=== PATIENT | male | born 2005 | race Caucasian/White ===

== ENCOUNTER 2024-03-25 07:52 | Emergency (ER) | payer BC, SELFPAY ==
[2024-03-25 07:54] VITALS: BP 137/67; PULSE 76; RESP 12; TEMP 36.7; O2SAT 100
--- NOTE | 2024-03-25 08:00 | DI.RAD_ITS ---
Exam(s) XR CHEST 2V PA LATERAL EXAM: XR CHEST 2V PA LATERAL CLINICAL HISTORY: SOB, Pain with breathing. TECHNIQUE: 2D digital imaging was performed. COMPARISON: No exams were available for comparison FINDINGS: 2 views: Heart size is normal. The mediastinum is not widened. Lungs are clear. No infiltrates nor pleural effusions. No pneumothorax IMPRESSION: No acute pulmonary findings. DATA REPOSITORY: RADIATION DOSE DELIVERED:
[2024-03-25 08:16] VITALS: BP 117/53; PULSE 45
--- NOTE | 2024-03-25 08:19 | ED.GENADUL_ITS ---
Discharge Plan Disposition Patient Disposition: Home Condition: Stable Discharge Details Clinical Impression: Costochondritis, Anterior chest wall pain Primary Care Provider: Moe Jean-Baptiste III ED Provider: Tricia Mejias Discharge Instructions Instructions: Costochondritis (ED), Chest Wall Pain (ED) Additional Instructions: No evidence of lung abnormality on Chest x-ray, I suspect musculoskeletal strain or something called costochondritis which is an inflammation of the ligaments in between your ribs. Please take Tylenol or Ibuprofen with food every 4-6 hours as needed for pain and swelling. Alternate ice and heat. Follow up with primary care provider in 3-5 days. Return to ED sooner if any worsening pain, shortness of breath, nausea vomiting, fever or concerns. Take it easy over the next few days, no heavy lifting to allow it to heal. Stand Alone Forms: Work Release Referrals: Moe Jean-Baptiste III [Primary Care Provider] - 3 days Discharge Data Discharge Date/Time-TO BE ENTERED AT DEPARTURE: 03/25/24 09:43 HPI General Mode of arrival: ambulatory . Date/Time Provider Initiated Documentation: 03/25/24 07:59 . Limitations to Documentation: no limitations . Information obtained by: patient, RN notes reviewed and old records reviewed . HPI Narrative: 18 year old male presents with left lower chest pain which has been ongoing on and off x 1 year, constant and worse since yesterday. Worse with deep breathing and movement. Denies smoking or alcohol, Denies any heavy lifting or trauma. Related Data Allergies Allergy/AdvReac Type Severity Reaction Status Date / Time dust mites Allergy Mild other Uncoded 03/25/24 08:13 leaf pollen Allergy Mild Other (See Uncoded 03/25/24 08:13 Comment) General Stated Complaint: Abd Prob LITO: 3 Review of Systems All systems reviewed & are unremarkable except as noted in HPI and below Cardiovascular Cardiovascular: Reports chest pain, Denies leg edema and Denies dyspnea Respiratory Respiratory: Denies dyspnea Musculoskeletal Musculoskeletal: Reports as per HPI Exam Narrative Exam Narrative: Constitutional: Alert and oriented x3. Appears stated age. Normal body habitus. Head: Normocephalic, no trauma. Eyes: Pupils PERRL, Red reflex noted, EOM's intact. Eyelids symmetrical without lesions, discharge, or swelling. Chest: RRR, Normal S1, S2, distal pulses intact. Resp: Lungs clear to auscultation bilaterally, no wheezes, rales, or rhonchi. Abdomen: Soft, non-distended, Normoactive bowel sounds all 4 quads. Musculoskeletal: Normal gait, moves all 4 extremities without difficulty. Skin: No suspicious rashes or lesions. Capillary refill less than 2 sec. Neurologic: Cranial nerves II-XII intact. Alert and oriented x 3. Motor: No deficits noted. Hematologic/Lymphatic: No ecchymosis, no lymphadenopathy. Course Vital Signs Vital signs: Vital Signs Temperature 36.7 C 03/25/24 07:54 Pulse 76 03/25/24 07:54 Respiratory Rate 12 03/25/24 07:54 Blood Pressure 137/67 03/25/24 07:54 Pulse Oximetry 100 03/25/24 07:54 Temperature 36.7 C 03/25/24 07:54 Temperature Source Oral 03/25/24 07:54 Pulse 76 03/25/24 07:54 Respiratory Rate 12 03/25/24 07:54 Respiratory Effort Normal, Non-Labored 03/25/24 07:59 Blood Pressure 137/67 03/25/24 07:54 Blood Pressure Position Sitting 03/25/24 07:54 Pulse Oximetry 100 03/25/24 07:54 Oxygen Delivery Method Room Air 03/25/24 07:54 Oxygen Flow Rate 0 03/25/24 07:54 Pain Level 3 03/25/24 08:06 Medical Decision Making 18 year old male presents with left lower chest pain which has been ongoing on and off x 1 year, constant and worse since yesterday. Worse with deep breathing and movement. Denies smoking or alcohol, Denies any heavy lifting or trauma. Chest x-ray 2 view ordered, CBC CMP lipase urinalysis. Strongly suspect musculoskeletal due to pain with movement and deep breathing. Will rule out other etiologies. Differential diagnosis includes not limited to ulcer, pancreatitis, musculoskeletal strain, costochondritis. Chest x-ray within normal limits noted below. Labs are also largely within normal limits of note bilirubin slightly high at 2.7, no leukocytosis. Patient received 50 mg Toradol. Remained hemodynamically stable throughout remainder of stay. Discussed home care strict return instructions to return if any worsening he verbalized understanding. Just instructed to alternate ice and heat, take Tylenol ibuprofen and rest for few days. He verbalized understanding. This text was generated using [employer] system, please disregard any oddities of phrase or misspellings. Imaging Data Radiologic Study: Imaging: X-Ray Radiologist's impression: EXAM: XR CHEST 2V PA LATERAL CLINICAL HISTORY: SOB, Pain with breathing. TECHNIQUE: 2D digital imaging was performed. COMPARISON: No exams were available for comparison FINDINGS: 2 views: Heart size is normal. The mediastinum is not widened. Lungs are clear. No infiltrates nor pleural effusions. No pneumothorax IMPRESSION: No acute pulmonary findings. Lab Data Lab results reviewed: Yes I reviewed the patient's lab results. Labs: Laboratory Tests Range/Units 03/25/24 03/25/24 08:05 08:20 WBC (4.4-10.8) 10^3/uL 3.89 L RBC (4.36-5.78) 10^6/uL 4.99 Hgb (13.5-17.5) g/dL 14.3 Hct (40.0-50.0) % 42.7 MCV (80-95) fL 86 MCH (27.0-33.0) pg 28.7 MCHC (32.0-36.0) % 33.5 RDW (11.8-14.1) % 13.0 Plt Count (130-400) 10^3/uL 259 MPV (8.0-11.0) fL 10.3 Immature Gran % 0.3 Neutrophils % 30.8 Lymphocytes % 51.9 Monocytes % 13.1 Eosinophils % 3.1 Basophils % 0.8 Nucleated RBC % (0.0-0.3) % 0.0 Absolute Neutrophils (1.2-6.7) 10^3/uL 1.20 Absolute Lymphocytes (1.2-3.4) 10^3/uL 2.02 Absolute Monocytes (0.1-0.8) 10^3/uL 0.51 Absolute Eosinophils (0.0-0.7) 10^3/uL 0.12 Absolute Basophils (0.0-0.2) 10^3/uL 0.03 Sodium (136-145) mmol/L 144 Potassium (3.5-5.1) mmol/L 3.8 Chloride (98-107) mmol/L 107 Carbon Dioxide (21.0-32.0) mmol/L 29.0 Anion Gap (3-11) mmol/L 8.0 BUN (7-18) mg/dL 10 Creatinine (0.70-1.30) mg/dL 0.9 Est GFR (CKD-EPI 2020) (mL/min/1.73m2) 126.17 Glucose (74-106) mg/dL 95 Calcium (8.5-10.1) mg/dL 8.7 Magnesium (1.8-2.4) mg/dL 2.1 Total Bilirubin (0.2-1.0) mg/dL 2.7 H AST (15-37) U/L 22 ALT (16-63) U/L 36 Alkaline Phosphatase (46-116) U/L 64 Total Protein (6.4-8.2) g/dL 7.0 Albumin (3.4-5.0) g/dL 4.1 Lipase (16-77) U/L 18 Urine Color (Yellow) Yellow Urine Clarity (Clear) Clear Urine pH (5-8) 5.5 Ur Specific [place] (1.005-1.025) >= 1.030 H Urine Protein (Neg-Trace) mg/dL Trace Urine Ketones (Negative) mg/dL Negative Urine Blood (Negative) Negative Urine Nitrite (Negative) Negative Urine Bilirubin (Negative) Negative Urine Urobilinogen (Up to 0.2) mg/dL 0.2 Ur Leukocyte Esterase (Negative) Negative Urine Glucose (Negative) mg/dL Negative Quality:SDOH Health Related Social Needs: No Data to Display PFSH All Active Problems (Updated 03/25/24 @ 09:20 by Tricia Mejias NP) Anterior chest wall pain (Acute) Costochondritis (Acute) Social History Smoking/Tobacco Use Status: Never Smoking risk assessment performed?: Yes Alcohol Intake: never Drug use: Never Substance use type: does not use Housing: house Do you feel safe at home: Yes Do you feel safe in your relationship?: Yes
[2024-03-25 08:23] VITALS: BP 128/52; PULSE 54
[2024-03-25 08:26] LABS: Bilirubin Negative (Negative); Blood Negative (Negative); Clarity Clear (Clear); Glucose Negative (Negative); Ketones Negative (Negative); Leukocyte Esterase Negative (Negative); Nitrite Negative (Negative); Specific Gravity >= 1.030 (1.005-1.025); Urobilinogen 0.2 mg/dL (Up to 0.2); pH 5.5 (5-8)
[2024-03-25 08:28] LABS: Abs Immature Grans 0.01 10^3/uL (0.0-0.06); Absolute Basophil Count 0.03 10^3/uL (0.0-0.2); Absolute Eosinophil Count 0.12 10^3/uL (0.0-0.7); Absolute Lymphocyte Count 2.02 10^3/uL (1.2-3.4); Absolute Monocyte Count 0.51 10^3/uL (0.1-0.8); Basophils % 0.8; Eosinophils % 3.1; HCT 42.7 % (40.0-50.0); HGB 14.3 g/dL (13.5-17.5); Immature Grans % 0.3; Lymphocytes % 51.9; MCH 28.7 pg (27.0-33.0); MCHC 33.5 % (32.0-36.0); MCV 86 fL (80-95); MPV 10.3 fL (8.0-11.0); Monocytes % 13.1; Neutrophils % 30.8; Platelet Count 259 10^3/uL (130-400); RBC 4.99 10^6/uL (4.36-5.78); RDW-SD 40.2 fL; WBC 3.89 10^3/uL (4.4-10.8)
[2024-03-25 08:31] VITALS: BP 116/50; PULSE 47
[2024-03-25 08:46] VITALS: BP 119/56; PULSE 43
[2024-03-25 08:47] LABS: ALT 36 U/L (16-63); AST 22 U/L (15-37); Albumin 4.1 g/dL (3.4-5.0); Alkaline Phosphatase 64 U/L (46-116); BUN 10 mg/dL (7-18); Bilirubin, Total 2.7 mg/dL (0.2-1.0); CREATININE 0.9 mg/dL (0.70-1.30); Calcium 8.7 mg/dL (8.5-10.1); Chloride 107 mmol/L (98-107); Estimated GFR 126.17 (mL/min/1.73m2); Glucose 95 mg/dL (74-106); Lipase 18 U/L (16-77); Magnesium 2.1 mg/dL (1.8-2.4); Potassium 3.8 mmol/L (3.5-5.1); Sodium 144 mmol/L (136-145)
[2024-03-25] MEDS: Ketorolac 15 MG/ML VIAL IVP (09:24)
[2024-03-25 09:39] VITALS: BP 118/66; PULSE 60
== END 2024-03-25 09:43 | disposition home or self-care (01) ==
LOC: ER 09:50
PROVIDERS: Emergency Provider Registered Nurse Emergency; PCP Pediatrics
DX: R07.89 Other chest pain (principal); M94.0 Chondrocostal junction syndrome [Tietze]
CPT/HCPCS: 80053; 83690; 96374; 99284; 71046; 81003; 83735; 85025; 99283; J1885

== ENCOUNTER 2024-07-07 18:21 | Emergency (ER) | payer SELFPAY ==
[2024-07-07 18:38] VITALS: BP 152/89; PULSE 70; RESP 16; TEMP 37.2; O2SAT 98
--- NOTE | 2024-07-07 22:30 | DI.RAD_ITS ---
Exam(s) XR HAND RT COMPLETE EXAM: XR HAND RT COMPLETE CLINICAL HISTORY: crush distal phlnx R thmb, ttp base/pad thumb. TECHNIQUE: 2D digital imaging was performed of the right hand. Three images were obtained. AP, late ral and oblique views were obtained. COMPARISON: No exams were available for comparison FINDINGS: BONES: No acute fracture is present. No bony destructive lesion is seen. JOINTS: No dislocation present. The joint spaces are well maintained. SOFT TISSUE: Normal. IMPRESSION: No acute abnormality. DATA REPOSITORY: RADIATION DOSE DELIVERED:
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
[2024-07-07] MEDS: Ibuprofen 600 MG TAB PO (22:49)
[2024-07-07] MEDS: Acetaminophen 500 MG TAB 1000 MG PO (22:49)
--- NOTE | 2024-07-08 00:43 | DI.VRAD_ITS ---
PROCEDURE INFORMATION: Exam: XR Right Hand Exam date and time: 07/07/2024 11:02 PM Age: 19 years old Clinical indication: Injury or trauma; Other: Crush to distal phalanx thumb; Crushing; Finger; Right; Patient HX: Crush distal phalanx R thumb, ttp base/pad thumb TECHNIQUE: Imaging protocol: Radiologic exam of the right hand. Views: 3 or more views. COMPARISON: No relevant prior studies available. FINDINGS: Bones/joints: Dorsopalmar, oblique, and lateral views of the right hand reveal no acute fracture or dislocation. Specifically, the bones of the 1st digit appear intact. Soft tissues: No significant soft tissue swelling is seen. IMPRESSION: No acute fracture or dislocation is seen in the right hand. Dictated and Authenticated by: Velasquez Durbin MD. Ordering:JEWEL Tran MD
== END 2024-07-08 00:58 | disposition home or self-care (01) ==
PROVIDERS: Emergency Provider Student in an Organized Health Care Education/Training Program; PCP Pediatrics
DX: S67.01XA Crushing injury of right thumb, initial encounter (principal); S60.111A Contusion of right thumb with damage to nail, initial encounter; W23.0XXA Caught, crushed, jammed, or pinched between moving objects, initial encounter; Y93.89 Activity, other specified; Y92.89 Other specified places as the place of occurrence of the external cause; Y99.0 Civilian activity done for income or pay
CPT/HCPCS: 99283; 73130